=== PATIENT | male | born 1950 | race Caucasian/White ===

== ENCOUNTER → 2019-11-22 | Outpatient (CLI) | payer MEDICARE, OTHER ==
--- NOTE | 2019-11-22 10:48 | XR ---
EXAMINATION TYPE: XR ankle complete RT DATE OF EXAM: 11/22/2019 COMPARISON: None HISTORY: Ankle pain TECHNIQUE: Three-view right ankle FINDINGS: No acute fractures are evident. There is some ossification in the posterior soft tissues. T he ascending calcaneal heel spur is present. The ankle mortise is visualized appears intact. Soft tis sues are otherwise unremarkable. No soft tissue swelling is evident. Follow-up exams can be performed 7-10 days from acute trauma for continued pain. IMPRESSION: 1. No acute osseous abnormality. 2. 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
== END | disposition home or self-care (01) ==
LOC: RADXRMAIN 10:19
PROVIDERS: ATTEND Family Medicine
DX: M61.571 Other ossification of muscle, right ankle and foot (principal)

== ENCOUNTER 2019-12-24 01:54 | Emergency (ER) | payer MEDICARE, OTHER ==
[2019-12-24 02:04] VITALS: RESP 18; TEMP 97.7
--- NOTE | 2019-12-24 02:17 | ED ---
General Adult HPI - General Chief complaint: Recheck/Abnormal Lab/Rx Stated complaint: High BP Time Seen by Provider: 12/24/19 02:09 Source: patient, family Mode of arrival: wheelchair Limitations: no limitations - History of Present Illness Initial comments: Patient is 69-year-old man presenting to have evaluation for hypertension that is been going on for approximately 3 days. Most of the history is from the patient's who states that his blood pressure has seemed to get progressively higher over the course the past 3 days. Today the systolic blood pressure was above 200. The patient denies any complaints. No headache or neurologic symptoms. No chest, back or abdomen pain. No dyspnea or cough. No nausea vomiting or diarrhea. Onset/Timin -: days(s) Severity scale (1-10): 0 Improves with: none Worsens with: none Associated Symptoms: denies other symptoms Treatments Prior to Arrival: none - Related Data Home Medications Medication Instructions Recorded Confirmed Donepezil HCl [Aricept] 23 mg PO HS 12/24/19 12/24/19 Irbesartan 75 mg PO DAILY 12/24/19 12/24/19 Lovastatin [Mevacor] 20 mg PO HS 12/24/19 12/24/19 Memantine HCl [Namenda Xr] 28 mg PO HS 12/24/19 12/24/19 Metoprolol Succinate (ER) [Toprol 200 mg PO DAILY 12/24/19 12/24/19 Xl] Ranitidine HCl [Zantac] 150 mg PO DAILY 12/24/19 12/24/19 Tamsulosin HCl [Flomax] 0.4 mg PO BID 12/24/19 12/24/19 levETIRAcetam [Keppra Xr] 750 mg PO BID 12/24/19 12/24/19 Allergies Allergy/AdvReac Type Severity Reaction Status Date / Time No Known Allergies Allergy Verified 12/24/19 02:04 Review of Systems ROS Statement: Those systems with pertinent positive or pertinent negative responses have been documented in the HPI. ROS Other: All systems not noted in ROS Statement are negative. 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 Absent: scleral icterus, conjunctival injection ENT exam: Present: normal oropharynx Neck exam: Present: normal inspection Respiratory exam: Present: normal lung sounds bilaterally. Absent: respiratory distress, wheezes, rales, rhonchi, stridor Cardiovascular Exam: Present: regular rate, normal rhythm, normal heart sounds. Absent: systolic murmur, diastolic murmur, rubs, gallop GI/Abdominal exam: Present: soft. Absent: distended, tenderness, guarding, rebound, rigid, mass Extremities exam: Present: normal inspection, normal capillary refill. Absent: pedal edema, calf tenderness Back exam: Present: normal inspection. Absent: CVA tenderness (R), CVA tenderness (L) Neurological exam: Present: alert Skin exam: Present: warm, dry, intact, normal color. Absent: rash Course Vital Signs 12/24/19 12/24/19 12/24/19 01:59 02:04 02:22 Temperature 97.7 F Pulse Rate 63 62 Pulse Rate [ 69 [employer] ] Respiratory 18 Rate Blood Pressure 231/119 235/140 O2 Sat by Pulse 96 96 Oximetry 12/24/19 12/24/19 03:00 03:37 Temperature Pulse Rate 57 L 56 L Pulse Rate [ [employer] ] Respiratory Rate Blood Pressure 177/103 109/76 O2 Sat by Pulse Oximetry EKG Findings - EKG Results: EKG: interpreted by ERMD, sinus rhythm, normal axis, normal QRS, normal ST/T, no acute changes EKG shows: bradycardia (Rate 55 bpm) Medical Decision Making - Lab Data Result diagrams: 12/24/19 02:27 06/22/20 02:27 Lab Results 12/24/19 12/24/19 12/24/19 Range/Units 02:25 02:27 02:27 WBC 7.9 (3.8-10.6) k/uL RBC 5.19 (4.30-5.90) m/uL Hgb 16.8 (13.0-17.5) gm/dL Hct 49.2 (39.0-53.0) % MCV 94.8 (80.0-100.0) fL MCH 32.4 (25.0-35.0) pg MCHC 34.1 (31.0-37.0) g/dL RDW 13.0 (11.5-15.5) % Plt Count 147 L D (150-450) k/uL Neutrophils % 60 % Lymphocytes % 25 % Monocytes % 9 % Eosinophils % 3 % Basophils % 1 % Neutrophils # 4.7 (1.3-7.7) k/uL Lymphocytes # 2.0 (1.0-4.8) k/uL Monocytes # 0.7 (0-1.0) k/uL Eosinophils # 0.3 (0-0.7) k/uL Basophils # 0.0 (0-0.2) k/uL Sodium 139 (137-145) mmol/L Potassium 4.0 (3.5-5.1) mmol/L Chloride 103 (98-107) mmol/L Carbon Dioxide 29 (22-30) mmol/L Anion Gap 7 mmol/L BUN 15 (9-20) mg/dL Creatinine 0.83 (0.66-1.25) mg/dL Est GFR (CKD-EPI)AfAm >90 (>60 ml/min/1.73 sqM) Est GFR (CKD-EPI)NonAf 89 (>60 ml/min/1.73 sqM) Glucose 107 H (74-99) mg/dL Calcium 9.5 (8.4-10.2) mg/dL Total Bilirubin 0.6 (0.2-1.3) mg/dL AST 36 (17-59) U/L ALT 32 (4-49) U/L Alkaline Phosphatase 72 (38-126) U/L Troponin I (0.000-0.034) ng/mL NT-Pro-B Natriuret Pep pg/mL Total Protein 7.3 (6.3-8.2) g/dL Albumin 4.4 (3.5-5.0) g/dL Urine Color Light Yellow Urine Appearance Clear (Clear) Urine pH 7.0 (5.0-8.0) Ur Specific [place] 1.005 (1.001-1.035) Urine Protein Negative (Negative) Urine Glucose (UA) Negative (Negative) Urine Ketones Negative (Negative) Urine Blood Negative (Negative) Urine Nitrite Negative (Negative) Urine Bilirubin Negative (Negative) Urine Urobilinogen <2.0 (<2.0) mg/dL Ur Leukocyte Esterase Negative (Negative) 12/24/19 12/24/19 Range/Units 02:27 02:27 WBC (3.8-10.6) k/uL RBC (4.30-5.90) m/uL Hgb (13.0-17.5) gm/dL Hct (39.0-53.0) % MCV (80.0-100.0) fL MCH (25.0-35.0) pg MCHC (31.0-37.0) g/dL RDW (11.5-15.5) % Plt Count (150-450) k/uL Neutrophils % % Lymphocytes % % Monocytes % % Eosinophils % % Basophils % % Neutrophils # (1.3-7.7) k/uL Lymphocytes # (1.0-4.8) k/uL Monocytes # (0-1.0) k/uL Eosinophils # (0-0.7) k/uL Basophils # (0-0.2) k/uL Sodium (137-145) mmol/L Potassium (3.5-5.1) mmol/L Chloride (98-107) mmol/L Carbon Dioxide (22-30) mmol/L Anion Gap mmol/L BUN (9-20) mg/dL Creatinine (0.66-1.25) mg/dL Est GFR (CKD-EPI)AfAm (>60 ml/min/1.73 sqM) Est GFR (CKD-EPI)NonAf (>60 ml/min/1.73 sqM) Glucose (74-99) mg/dL Calcium (8.4-10.2) mg/dL Total Bilirubin (0.2-1.3) mg/dL AST (17-59) U/L ALT (4-49) U/L Alkaline Phosphatase (38-126) U/L Troponin I <0.012 (0.000-0.034) ng/mL NT-Pro-B Natriuret Pep 394 pg/mL Total Protein (6.3-8.2) g/dL Albumin (3.5-5.0) g/dL Urine Color Urine Appearance (Clear) Urine pH (5.0-8.0) Ur Specific [place] (1.001-1.035) Urine Protein (Negative) Urine Glucose (UA) (Negative) Urine Ketones (Negative) Urine Blood (Negative) Urine Nitrite (Negative) Urine Bilirubin (Negative) Urine Urobilinogen (<2.0) mg/dL Ur Leukocyte Esterase (Negative) Disposition Clinical Impression: Hypertension Disposition: HOME SELF-CARE Condition: Good Instructions (If sedation given, give patient instructions): Hypertension (ED) Is patient prescribed a controlled substance at d/c from ED?: No Referrals: Yogesh Turcios DO [Primary Care Provider] - 1-2 days
[2019-12-24] MEDS ORDERED: cloNIDine HCL 0.2 MG TAB PO STA (02:22)
[2019-12-24 02:40] LABS: Basophils % (A) 1 %; Eosinophils # (A) 0.3 k/uL (0-0.7); Eosinophils % (A) 3 %; HCT 49.2 % (39.0-53.0); HGB 16.8 gm/dL (13.0-17.5); Lymphocytes % (A) 25 %; MCH 32.4 pg (25.0-35.0); MCHC 34.1 g/dL (31.0-37.0); MCV 94.8 fL (80.0-100.0); Mean Platelet Volume 8.2; Monocytes # (A) 0.7 k/uL (0-1.0); Monocytes % (A) 9 %; Neutrophils # (A) 4.7 k/uL (1.3-7.7); Neutrophils % (A) 60 %; RBC 5.19 m/uL (4.30-5.90); WBC 7.9 k/uL (3.8-10.6)
--- NOTE | 2019-12-24 02:41 | XR ---
EXAMINATION TYPE: XR chest 2V DATE OF EXAM: 12/24/2019 COMPARISON: NONE HISTORY: Hypertension TECHNIQUE: 2 views FINDINGS: Heart and mediastinum are normal. Lungs are clear. Diaphragm is normal. Bony thorax appears normal. Pulmonary vascularity is normal. IMPRESSION: No active cardiopulmonary disease. Normal heart.
[2019-12-24 02:48] LABS: Platelet Count 147 k/uL (150-450)
[2019-12-24 02:49] LABS: African American GFR (CKD) >90 (>60 ml/min/1.73 sqM); Albumin 4.4 g/dL (3.5-5.0); Anion Gap 7 mmol/L; Calcium 9.5 mg/dL (8.4-10.2); Carbon Dioxide 29 mmol/L (22-30); Chloride 103 mmol/L (98-107); Glucose 107 mg/dL (74-99); Non-African American GFR(CKD) 89 (>60 ml/min/1.73 sqM); Sodium 139 mmol/L (137-145); Total Bilirubin 0.6 mg/dL (0.2-1.3); Total Protein 7.3 g/dL (6.3-8.2)
[2019-12-24 02:53] LABS: ALT 32 U/L (4-49); AST 36 U/L (17-59); Alkaline Phosphatase 72 U/L (38-126); Blood Urea Nitrogen 15 mg/dL (9-20)
[2019-12-24 02:53] LABS: Appearance,Urine Clear (Clear); Bilirubin,Urine Negative (Negative); Blood,Urine Negative (Negative); Color,Urine Light Yellow; Glucose,Urine (UA) Negative (Negative); Ketones,Urine Negative (Negative); Protein,Urine Negative (Negative); Specific Gravity,Urine 1.005 (1.001-1.035)
[2019-12-24 02:54] LABS: Leukocyte Esterase,Urine Negative (Negative); Nitrite,Urine Negative (Negative); Urobilinogen,Urine <2.0 mg/dL (<2.0)
[2019-12-24] MEDS ORDERED: ENALAPRILAT 1.25 MG/ML 1 ML VIAL IVP STA (03:28)
[2019-12-24 03:38] VITALS: BP 109/76; PULSE 56
== END 2019-12-24 04:00 | disposition home or self-care (01) ==
LOC: EC 01:54
DX: I10 Essential (primary) hypertension (principal); E78.5 Hyperlipidemia, unspecified; Z79.899 Other long term (current) drug therapy
CPT/HCPCS: 36415; 71046; 80053; 81003; 83880; 84484; 85025; 93005; 99284

== ENCOUNTER → 2020-03-03 | Outpatient (CLI) | payer MEDICARE, OTHER | END | disposition home or self-care (01) | LOC: LABWHC1 16:13 | PROVIDERS: ATTEND Family Medicine | DX: R22.43 Localized swelling, mass and lump, lower limb, bilateral (principal) | CPT/HCPCS: 36415; 83880; 84550; 85379 ==

== ENCOUNTER 2021-03-08 20:33 | Observation (INO) | payer MEDICARE, OTHER ==
[2021-03-08 20:53] LABS: Glucose,Whole Blood 113 mg/dL (75-99)
[2021-03-08] MEDS ORDERED: SODIUM CHLORIDE 0.9% 500 ML 500 ML IV ONE (21:07)
--- NOTE | 2021-03-08 21:09 | ED ---
Altered Mental Status HPI - General Chief Complaint: Altered Mental Status Stated Complaint: Syncope, altered mental status Time Seen by Provider: 03/08/21 21:07 Source: patient Mode of arrival: wheelchair Limitations: altered mental status, physical limitation - History of Present Illness Initial Comments: Yann a 70-year-old male with a history of traumatic brain injury 14 years ago. Patient does have some advanced dementia and some impulse control. Apparently at a family gathering this evening he complained that he could see lightening and then had a period of altered mental status. Since then he's been somewhat more sleepy than usual he wakes but is not his normal self. He is brought to the ER for reevaluation. at bedside concerned that he is having a stroke. Patient offers no meaningful history, he answers yes or no but not appropriately and not consistently. At times when asked if he has pain he says no and then he'll say yes and then again say no. - Related Data Home Medications Medication Instructions Recorded Confirmed Donepezil HCl [Aricept] 23 mg PO HS 12/24/19 03/08/21 Irbesartan 75 mg PO DAILY 12/24/19 03/08/21 Lovastatin [Mevacor] 20 mg PO HS 12/24/19 03/08/21 Memantine HCl [Namenda Xr] 28 mg PO HS 12/24/19 03/08/21 Tamsulosin HCl [Flomax] 0.4 mg PO BID 12/24/19 03/08/21 levETIRAcetam [Keppra Xr] 750 mg PO BID 12/24/19 03/08/21 Aspirin EC [Ecotrin] 325 mg PO DAILY 03/08/21 03/08/21 Cholecalciferol (Vitamin D3) 125 mcg PO DAILY 03/08/21 03/08/21 [Vitamin D3 (125 MCG = 5,000 IU)] Furosemide [Lasix] 20 mg PO TUTH 03/08/21 03/08/21 Metoprolol Succinate [Toprol XL] 200 mg PO HS 03/08/21 03/08/21 Rivastigmine 9.5MG/24Hr Patch 1 patch TRANSDERM Q24HR 03/08/21 03/08/21 [Exelon 9.5MG/24Hr Patch] amLODIPine [Norvasc] 10 mg PO DAILY 03/08/21 03/08/21 hydroCHLOROthiazide [Hydrodiuril] 50 mg PO DAILY 03/08/21 03/08/21 Allergies Allergy/AdvReac Type Severity Reaction Status Date / Time No Known Allergies Allergy Verified 03/08/21 21:57 Review of Systems ROS Statement: Those systems with pertinent positive or pertinent negative responses have been documented in the HPI. ROS Other: All systems not noted in ROS Statement are negative. 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 Patient is nontoxic and well-hydrated and is in no distress. HENT: Old craniotomy scars noted EYES: Pupils 2 mm, vertical Bise diagnosis noted PULMONARY: Unlabored respirations. CARDIOVASCULAR: RRR Warm and well perfused extremities ABDOMEN: Non-distended SKIN: No rashes or bruising : Deferred NEUROLOGIC: Somnolent, answers name and location MUSCULOSKELETAL: Moving all extremities with no apparent injury PSYCHIATRIC: Unable to assess Limitations: altered mental status, physical limitation Course Vital Signs 03/08/21 03/08/21 03/08/21 20:50 22:58 23:01 Temperature 98.2 F Pulse Rate 60 60 Respiratory 15 20 16 Rate Blood Pressure 125/72 111/64 O2 Sat by Pulse 94 L 95 Oximetry Medical Decision Making - Medical Decision Making She was seen and evaluated history is obtained from the family as the patient is quite confused. When asked if he has any pain patient says no. With family advises him that he didn't complain of headache he says yes when asked if he has headache evinces no. Patient is quite somnolent but wakes states his name. Pupils are pinpoint and there is some nystagmus which apparently is baseline from his previous TBI CT and CTA were obtained and were negative for acute pathology no evidence of cranial bleeding Labs show evidence of acute kidney injury Discussed with the patient and the family I suspect that his acute kidney injury his lead to decreased clearance of some of his medications and his altered mental status is due to polypharmacy. I recommended admission to the hospital for fluid resuscitation and reevaluation as well as evaluation by neurology. Al barroso was agreeable. This plan was discussed with admitting physician Dr. Dutton who accepts the admission with consult to neurology. - Lab Data Result diagrams: 03/08/21 21:30 03/08/21 21:30 Lab Results 03/08/21 03/08/21 03/08/21 Range/Units 20:52 21:30 21:30 WBC 12.0 H (3.8-10.6) k/uL RBC 4.73 (4.30-5.90) m/uL Hgb 15.5 (13.0-17.5) gm/dL Hct 44.5 (39.0-53.0) % MCV 93.9 (80.0-100.0) fL MCH 32.7 (25.0-35.0) pg MCHC 34.8 (31.0-37.0) g/dL RDW 12.7 (11.5-15.5) % Plt Count 289 (150-450) k/uL MPV 7.6 Neutrophils % 70 % Lymphocytes % 16 % Monocytes % 9 % Eosinophils % 2 % Basophils % 1 % Neutrophils # 8.4 H (1.3-7.7) k/uL Lymphocytes # 1.9 (1.0-4.8) k/uL Monocytes # 1.1 H (0-1.0) k/uL Eosinophils # 0.3 (0-0.7) k/uL Basophils # 0.1 (0-0.2) k/uL PT 10.4 (9.0-12.0) sec INR 1.0 (<1.2) APTT 23.8 (22.0-30.0) sec Sodium (137-145) mmol/L Potassium (3.5-5.1) mmol/L Chloride (98-107) mmol/L Carbon Dioxide (22-30) mmol/L Anion Gap mmol/L BUN (9-20) mg/dL Creatinine (0.66-1.25) mg/dL Est GFR (CKD-EPI)AfAm (>60 ml/min/1.73 sqM) Est GFR (CKD-EPI)NonAf (>60 ml/min/1.73 sqM) Glucose (74-99) mg/dL POC Glucose (mg/dL) 113 H (75-99) mg/dL POC Glu Service Planner ID Stacie Morales Calcium (8.4-10.2) mg/dL Total Bilirubin (0.2-1.3) mg/dL AST (17-59) U/L ALT (4-49) U/L Alkaline Phosphatase (38-126) U/L Troponin I (0.000-0.034) ng/mL Total Protein (6.3-8.2) g/dL Albumin (3.5-5.0) g/dL Urine Color Urine Appearance (Clear) Urine pH (5.0-8.0) Ur Specific [place] (1.001-1.035) Urine Protein (Negative) Urine Glucose (UA) (Negative) Urine Ketones (Negative) Urine Blood (Negative) Urine Nitrite (Negative) Urine Bilirubin (Negative) Urine Urobilinogen (<2.0) mg/dL Ur Leukocyte Esterase (Negative) Urine Opiates Screen (NotDetected) Ur Oxycodone Screen (NotDetected) Urine Methadone Screen (NotDetected) Ur Propoxyphene Screen (NotDetected) Ur Barbiturates Screen (NotDetected) U Tricyclic Antidepress (NotDetected) Ur Phencyclidine Scrn (NotDetected) Ur Amphetamines Screen (NotDetected) U Methamphetamines Scrn (NotDetected) U Benzodiazepines Scrn (NotDetected) Urine Cocaine Screen (NotDetected) U Marijuana (THC) Screen (NotDetected) 03/08/21 03/08/21 03/08/21 Range/Units 21:30 21:30 21:57 WBC (3.8-10.6) k/uL RBC (4.30-5.90) m/uL Hgb (13.0-17.5) gm/dL Hct (39.0-53.0) % MCV (80.0-100.0) fL MCH (25.0-35.0) pg MCHC (31.0-37.0) g/dL RDW (11.5-15.5) % Plt Count (150-450) k/uL MPV Neutrophils % % Lymphocytes % % Monocytes % % Eosinophils % % Basophils % % Neutrophils # (1.3-7.7) k/uL Lymphocytes # (1.0-4.8) k/uL Monocytes # (0-1.0) k/uL Eosinophils # (0-0.7) k/uL Basophils # (0-0.2) k/uL PT (9.0-12.0) sec INR (<1.2) APTT (22.0-30.0) sec Sodium 135 L (137-145) mmol/L Potassium 4.2 (3.5-5.1) mmol/L Chloride 96 L (98-107) mmol/L Carbon Dioxide 27 (22-30) mmol/L Anion Gap 12 mmol/L BUN 47 H (9-20) mg/dL Creatinine 2.16 H (0.66-1.25) mg/dL Est GFR (CKD-EPI)AfAm 34 (>60 ml/min/1.73 sqM) Est GFR (CKD-EPI)NonAf 30 (>60 ml/min/1.73 sqM) Glucose 101 H (74-99) mg/dL POC Glucose (mg/dL) (75-99) mg/dL POC Glu Service Planner ID Calcium 10.4 H (8.4-10.2) mg/dL Total Bilirubin 0.4 (0.2-1.3) mg/dL AST 28 (17-59) U/L ALT 26 (4-49) U/L Alkaline Phosphatase 110 (38-126) U/L Troponin I <0.012 (0.000-0.034) ng/mL Total Protein 7.7 (6.3-8.2) g/dL Albumin 4.7 (3.5-5.0) g/dL Urine Color Yellow Urine Appearance Clear (Clear) Urine pH 5.5 (5.0-8.0) Ur Specific [place] 1.030 (1.001-1.035) Urine Protein Negative (Negative) Urine Glucose (UA) Negative (Negative) Urine Ketones Negative (Negative) Urine Blood Negative (Negative) Urine Nitrite Negative (Negative) Urine Bilirubin Negative (Negative) Urine Urobilinogen 2.0 (<2.0) mg/dL Ur Leukocyte Esterase Negative (Negative) Urine Opiates Screen Not Detected (NotDetected) Ur Oxycodone Screen Not Detected (NotDetected) Urine Methadone Screen Not Detected (NotDetected) Ur Propoxyphene Screen Not Detected (NotDetected) Ur Barbiturates Screen Not Detected (NotDetected) U Tricyclic Antidepress Not Detected (NotDetected) Ur Phencyclidine Scrn Not Detected (NotDetected) Ur Amphetamines Screen Not Detected (NotDetected) U Methamphetamines Scrn Not Detected (NotDetected) U Benzodiazepines Scrn Not Detected (NotDetected) Urine Cocaine Screen Not Detected (NotDetected) U Marijuana (THC) Screen Not Detected (NotDetected) - EKG Data -: EKG Interpreted by Me EKG Comments: EKG was obtained at 2051, rate is 60 rhythm is sinus normal axis, normal intervals, NC 188 QRS 86 QTC 428 there are no acute ST elevations or depressions no evidence of ischemia or infarction. Disposition Clinical Impression: CODY (acute kidney injury), Metabolic encephalopathy, Polypharmacy, Delirium due to general medical condition Disposition: ADMITTED IP TO THIS HOSP Condition: Stable Is patient prescribed a controlled substance at d/c from ED?: No Referrals: Yogesh Turcios DO [Primary Care Provider] - 1-2 days
--- NOTE | 2021-03-08 21:35 | CT ---
EXAMINATION TYPE: CT brain wo con DATE OF EXAM: 03/08/2021 COMPARISON: None HISTORY: AMS, possible stroke. Hx craniotomy CT DLP: 1109.8 mGycm Automated exposure control for dose reduction was used. There is cerebral cortical atrophy. There is no mass effect nor midline shift. There is no sign of in tracranial hemorrhage. There is previous left parietal craniotomy defect. There is hypodensity in the left parietal lobe consistent with old encephalomalacia. Skull base is intact. IMPRESSION: Previous surgery. Cerebral atrophy. No acute intracranial abnormality.
[2021-03-08 22:08] LABS: Partial Thromboplastin Time 23.8 sec (22.0-30.0); Prothrombin Time 10.4 sec (9.0-12.0)
--- NOTE | 2021-03-08 22:08 | CT ---
EXAMINATION TYPE: CODE STROKE: CTA head neck DATE OF EXAM: 03/08/2021 COMPARISON: None HISTORY: AMS, headache CT DLP: 528.8 mGycm Automated exposure control for dose reduction was used. CONTRAST: Performed with IV Contrast, patient injected with 65 mL of Isovue 370. There are 3-D post processed images. Images obtained from the aortic arch to the vertex of the brain with IV contrast. There is normal branching pattern of the great vessels on the aortic arch. Ascending aorta measures 3 .4 cm There is arterial flow in both subclavian arteries. There is arterial flow in the common internal and external carotid arteries bilaterally. There is wide patency of the carotid artery bifurcations. The re is arterial flow in both vertebral arteries. There is arterial flow in the vertebrobasilar artery system. There is no evidence of carotid or verte bral artery aneurysm or dissection. There is left temporal parietal craniotomy defect. There is cerebral hypodensity left temporal lobe c onsistent with encephalomalacia. There is arterial flow in the anterior middle and posterior cerebral arteries. There is no mass effect. I see no sign of intracranial aneurysm or neovascularity. There i s no evidence of intracranial arterial stenosis. There is atherosclerotic calcification in the intrac ranial internal carotid arteries. There is normal enhancement of the venous sinuses. IMPRESSION: Negative CT angiogram of the neck. Negative CT angiogram of the brain.
[2021-03-08 22:10] LABS: Appearance,Urine Clear (Clear); Bilirubin,Urine Negative (Negative); Blood,Urine Negative (Negative); Color,Urine Yellow; Glucose,Urine (UA) Negative (Negative); Ketones,Urine Negative (Negative); Leukocyte Esterase,Urine Negative (Negative); Nitrite,Urine Negative (Negative); PH, Urine 5.5 (5.0-8.0); Protein,Urine Negative (Negative)
[2021-03-08 22:18] LABS: Basophils # (A) 0.1 k/uL (0-0.2); Basophils % (A) 1 %; Eosinophils # (A) 0.3 k/uL (0-0.7); Eosinophils % (A) 2 %; HCT 44.5 % (39.0-53.0); HGB 15.5 gm/dL (13.0-17.5); Lymphocytes # (A) 1.9 k/uL (1.0-4.8); Lymphocytes % (A) 16 %; MCH 32.7 pg (25.0-35.0); MCHC 34.8 g/dL (31.0-37.0); MCV 93.9 fL (80.0-100.0); Mean Platelet Volume 7.6; Monocytes # (A) 1.1 k/uL (0-1.0); Monocytes % (A) 9 %; Neutrophils # (A) 8.4 k/uL (1.3-7.7); Neutrophils % (A) 70 %; Platelet Count 289 k/uL (150-450); RBC 4.73 m/uL (4.30-5.90); RDW 12.7 % (11.5-15.5)
[2021-03-08 22:20] LABS: Albumin 4.7 g/dL (3.5-5.0); Calcium 10.4 mg/dL (8.4-10.2); Potassium 4.2 mmol/L (3.5-5.1); Total Bilirubin 0.4 mg/dL (0.2-1.3); Total Protein 7.7 g/dL (6.3-8.2)
[2021-03-08] MEDS ORDERED: NALOXONE 0.4 MG/ML 1 ML VIAL IVP STA (22:22)
[2021-03-08] MEDS ORDERED: SODIUM CHLORIDE 0.9% 1,000 ML IV ONE (22:22)
[2021-03-08 22:54] LABS: Amphetamine Screen,Urine Not Detected (NotDetected); Barbiturate Screen,Urine Not Detected (NotDetected); Benzodiazepines Screen,Urine Not Detected (NotDetected); Cocaine Screen,Urine Not Detected (NotDetected); Methadone Screen, Urine Not Detected (NotDetected); Opiate Screen,Urine Not Detected (NotDetected); Oxycodone Screen, Urine Not Detected (NotDetected); Phencyclidine Screen,Urine Not Detected (NotDetected); Tricyclic Antidepressant,Urine Not Detected (NotDetected); Urn Cannabinoid Scrn Not Detected (NotDetected)
[2021-03-08] MEDS ORDERED: NALOXONE 0.4 MG/ML 1 ML VIAL IV PRN (23:15)
[2021-03-09] MEDS: SODIUM CHLORIDE 0.9% 1,000 ML IV SCH ×4 (00:59→22:59)
[2021-03-09] MEDS ORDERED: ASPIRIN 325 MG TAB PO SCH (10:15)
[2021-03-09] MEDS: LOSARTAN 25 MG TAB PO SCH (10:55)
[2021-03-09] MEDS: TAMSULOSIN 0.4 MG CAP.ER.24H PO SCH ×2 (10:55→22:56)
[2021-03-09] MEDS: amLODIPine 10 MG TAB PO SCH (10:55)
[2021-03-09] MEDS: levETIRAcetam 500 MG TAB PO SCH (11:32)
[2021-03-09 12:16] LABS: African American GFR (CKD) 70 (>60 ml/min/1.73 sqM); Anion Gap 7 mmol/L; Blood Urea Nitrogen 32 mg/dL (9-20); Calcium 9.2 mg/dL (8.4-10.2); Carbon Dioxide 24 mmol/L (22-30); Chloride 106 mmol/L (98-107); Glucose 127 mg/dL (74-99); Non-African American GFR(CKD) 60 (>60 ml/min/1.73 sqM); Potassium 4.2 mmol/L (3.5-5.1); Sodium 137 mmol/L (137-145)
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
[2021-03-09 17:18] LABS: Folate, Serum 17.6 ng/mL
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
[2021-03-09] MEDS ORDERED: METOPROLOL SUCCINATE (ER) 100 MG TAB.ER.24H PO SCH (21:00)
[2021-03-09] MEDS ORDERED: ATORVASTATIN 10 MG TAB PO SCH (21:00)
[2021-03-09] MEDS: ASPIRIN 81 MG PO SCH (22:56)
[2021-03-09] MEDS: MEMANTINE 10 MG TAB PO SCH (22:56)
[2021-03-09] MEDS: DONEPEZIL 10 MG TAB PO SCH (22:56)
[2021-03-09] MEDS: LEVETIRACETAM 750 MG PO SCH (22:56)
[2021-03-10] MEDS: SODIUM CHLORIDE 0.9% 1,000 ML IV SCH ×2 (05:28→11:29)
[2021-03-10 08:35] VITALS: BP 132/79; PULSE 54; RESP 17; TEMP 98.3
[2021-03-10] MEDS ORDERED: CHOLECALCIFEROL 25 MCG (1000 IU) TABLET PO SCH (09:00)
[2021-03-10] MEDS ORDERED: RIVASTIGMINE 9.5MG/24HR PATCH TRANSDERM SCH (09:00)
[2021-03-10] MEDS ORDERED: FUROSEMIDE 20 MG TAB PO SCH (09:00)
[2021-03-10] MEDS: LOSARTAN 25 MG TAB PO SCH (10:07)
[2021-03-10] MEDS: ASPIRIN 81 MG PO SCH (10:08)
[2021-03-10] MEDS: TAMSULOSIN 0.4 MG CAP.ER.24H PO SCH (10:09)
[2021-03-10] MEDS: amLODIPine 10 MG TAB PO SCH (10:09)
[2021-03-10] MEDS: MEMANTINE 10 MG TAB PO SCH (10:10)
[2021-03-10] MEDS: DONEPEZIL 10 MG TAB PO SCH (10:10)
--- NOTE | 2021-03-10 10:22 | EEG ---
ELECTROENCEPHALOGRAM REPORT DATE OF SERVICE: 03/10/2021 PREAMBLE: This is a 70-year-old male with history of syncope versus seizure. This study is performed to evaluate for any epileptiform activity. EEG FINDINGS: This is a 21 channel routine EEG recording in a patient utilizing 10/20 international system with referential and bipolar montages. Background consists of well developed, well regulated, moderate voltage activity in 8-9 hertz alpha. Background is posterior dominant and is reactive to eye opening and closing. Photic response was seen with some flash frequencies. Drowsiness and stage 2 sleep was seen with presence of vertex waves and sleep spindles. No focal or generalized epileptiform activity was seen. EKG channel showed no obvious arrhythmia. IMPRESSION: This is a normal EEG during wakefulness, drowsiness and brief stage 2 sleep. No focal, lateralized, or epileptiform activity was seen. MMSARAHL / IJN: [id number] /
[2021-03-10] MEDS ORDERED: levETIRAcetam 250 MG TAB PO SCH (11:15)
--- NOTE | 2021-03-10 11:21 | P.PN ---
Subjective Progress Note Date: 03/10/21 Patient was seen for a follow-up. Patient's was also present. According to the patient and his , patient is back to baseline. His mentation is normal. No new concerns. No numbness tingling weakness. No visual issues. Objective - Vital Signs Vital signs: Vital Signs Temp 98.3 F 03/10/21 07:00 Pulse 54 L 03/10/21 07:00 Resp 17 03/10/21 07:00 BP 132/79 03/10/21 07:00 Pulse Ox 97 03/10/21 07:00 Intake & Output 03/09/21 03/10/21 03/10/21 18:59 06:59 18:59 Intake Total 1040 118 Output Total 650 1200 Balance 390 -1200 118 Intake: Intake, IV Titration 1040 Amount Sodium Chloride 0.9% 1, 1040 000 ml @ 130 mls/hr IV . Q7H42M ALFONSO Rx#:[id number] Oral 118 Output: Urine 650 1200 Other: Voiding Method Urinal # Voids 1 1 # Bowel Movements 1 - Exam Patient's mentation is stable. Muscle strength is normal. Patient has a cast in the right foot. - Labs CBC & Chem 7: 03/08/21 21:30 03/09/21 11:54 Labs: Abnormal Lab Results - Last 24 Hours (Table) 03/09/21 Range/Units 11:54 BUN 32 H (9-20) mg/dL Glucose 127 H (74-99) mg/dL Assessment and Plan Assessment: * Probable Syncope, less likely a seizure. Patient has prolonged post ictal state, which favors seizure, although could be related to metabolic encephalopathy from acute renal failure. * Acute renal failure, now resolved * History of traumatic brain injury in 2006, status post craniotomy * Hypertension Plan: * EEG was performed today, which is normal. No epileptiform activity was seen. * Repeat Chem-7 shows remarkably improved renal functions with BUN 32, creat inine 1.20. * Await Keppra level, as Keppra is excreted renally. Can be followed up as an outpatient. Now that the renal functions are normal, no concerns about Keppra dosing. Continue Keppra XR 750 mg twice a day. * B12 560, folate 17.6, MMA pending. TSH and free T4 are normal. * Telemetry monitoring, so far showing sinus rhythm, with sinus bradycardia in the upper 40s. No other arrhythmia. * Patient is already on high dose donepezil 23 mg. Exelon patch 9.5 mg was added in January. I would stop Exelon, as it can predispose to syncopal spells. Continue Namenda. * Discussed with patient's in detail. * Neurologically clear for discharge. Patient has an appointment with his neurologist on 05/20/2021. * Patient at present is not driving because of presence of a cast in the right foot.
[2021-03-10] MEDS: LEVETIRACETAM 750 MG PO SCH (11:26)
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
== END 2021-03-10 14:06 | disposition home or self-care (01) ==
LOC: EEVIPCON 20:33 → EC 20:33 → 6NMEDSUR 23:15
PROVIDERS: ADMIT Family Medicine; ATTEND Family Medicine
DX: G93.41 Metabolic encephalopathy (principal); F02.80 Dementia in other diseases classified elsewhere, unspecified severity, without behavioral disturbance, psychotic disturbance, mood disturbance, and anxiety; G31.89 Other specified degenerative diseases of nervous system; F05 Delirium due to known physiological condition; E78.5 Hyperlipidemia, unspecified; I10 Essential (primary) hypertension; N17.9 Acute kidney failure, unspecified; H55.00 Unspecified nystagmus; R56.9 Unspecified convulsions; E66.9 Obesity, unspecified; Z68.34 Body mass index [BMI] 34.0-34.9, adult; Z79.82 Long term (current) use of aspirin; Z79.899 Other long term (current) drug therapy; Z98.890 Other specified postprocedural states; Z87.820 Personal history of traumatic brain injury; Z86.14 Personal history of Methicillin resistant Staphylococcus aureus infection
CPT/HCPCS: 99285; 96361 ×3; 96374; 36415; 95816; 93005; 97162; 97165; 83921; 80053; 80048; 80177; 82607; 82746; 84484; 85025; 85610; 85730; 81003; 80306; 70496; 70450; 70498; G0378 ×3; J2310; Q9967